=== PATIENT | male | born 2000 | race Caucasian/White ===

== ENCOUNTER 2022-10-01 20:43 | Emergency (ER) | payer OTHER ==
[2022-10-01 21:08] VITALS: BP 124/82
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
--- NOTE | 2022-10-01 23:19 | XRAY Report ---
PROCEDURE: Elbow 3 View RT INDICATIONS: Trauma TECHNIQUE: 3 views of the elbow were acquired. COMPARISON: None. FINDINGS: Bones: No fractures or dislocations. No suspicious bony lesions. Soft tissues: No effusion. No suspicious soft tissue calcifications or masses. IMPRESSION: 1. No fracture or dislocation. Reviewed by: Jose Covarrubias MD on 10/01/2022 11:17 PM PDT Approved by: Jose Covarrubias MD on 10/01/2022 11:17 PM PDT Station ID: [id number]
== END 2022-10-01 22:24 | disposition home or self-care (01) ==
LOC: ED 20:43
DX: S59.901A Unspecified injury of right elbow, initial encounter (principal); X50.1XXA Overexertion from prolonged static or awkward postures, initial encounter; Y93.E9 Activity, other interior property and clothing maintenance
CPT/HCPCS: 99283